=== PATIENT | male | born 1955 | race Caucasian/White ===

== ENCOUNTER 2016-12-11 13:55 | Outpatient (CLI) | payer OTHER ==
--- NOTE | 2016-12-12 07:43 | RAD ---
LEFT SHOULDER TWO VIEWS 12/11/16 INDICATION: Pain. FINDINGS: Chronic deformity of the mid portion left clavicle present. There is osteoarthritis. No acute fractu re or dislocation. IMPRESSION: No acute process of the left shoulder. POS: DONNA
--- NOTE | 2016-12-12 07:44 | RAD ---
TWO VIEW RIGHT HIP 12/11/16 INDICATION: Pain. FINDINGS: There is mild osteoarthritis of the right hip. No fracture or dislocation. Phleboliths overlie the r ight pelvis. IMPRESSION: No acute process. POS: DONNA
--- NOTE | 2016-12-12 07:44 | RAD ---
LUMBAR SPINE THREE VIEWS 12/11/16 INDICATION: Low back pain. FINDINGS: Mild left convexity curvature of the lumbar spine. There is multilevel moderate degenerative change without compression fracture or subluxation. Phleboliths overlie the pelvis. IMPRESSION: No acute abnormality. POS: DONNA
== END 2016-12-11 13:56 | disposition home or self-care (01) ==
LOC: NAV RAD 13:55
PROVIDERS: ATTEND Family Medicine
DX: Z02.71 Encounter for disability determination (principal)
CPT/HCPCS: 72100